=== PATIENT | male | born 1985 | race Two or more races ===

== ENCOUNTER 2019-10-07 23:08 | Observation (INO) ==
[2019-10-07] MEDS ORDERED: SODIUM CHLORIDE 0.9% 1,000 ML IV STA (23:42)
[2019-10-07] MEDS ORDERED: ACETAMINOPHEN 500 MG TABLET PO STA (23:42)
[2019-10-07 23:56] LABS: Basophils % 0.2 % (0.0-0.8); Eosinophils % 0.2 % (0.00-10.9); Hematocrit 47.6 VOL% (42.0-52.0); Hemoglobin 15.7 GM/DL (14.0-18.0); Immature Granulocytes % 0.5 %; Immature Granulocytes Absolute 0.09 #; Lymphocytes # 1.9 10*3/uL (1.4-4.0); Lymphocytes % 10.2 % (21.2-54.2); Mean Corpuscular Volume 87.8 FL (87-102); Mean Platelet Volume 9.8 FL (9.6-12.0); Monocytes % 7.8 % (1.7-12.7); Neutrophils % 81.1 % (38.7-73.9); Platelet Count 229 T/CUMM (130-400); Red Blood Count 5.42 MC/CUMM (3.8-5.5); Red Cell Distribution Width 12.8 % (9.3-17.3); White Blood Count 18.9 T/CUMM (4-12)
[2019-10-08 00:07] LABS: INR 1.1; PT Patient Result 11.9 SECS (9.8-11.9); Partial Thromboplastin Time 36.3 SECS (23.9-33.8)
[2019-10-08 00:22] LABS: Albumin 4.2 G/DL (3.4-5.0); Bilirubin,Total 1.2 MG/DL (0.2-1.0); Calcium 9.5 MG/DL (8.5-10.1); Osmolality,Calculated 267.1 MOS/KG (273-304); Total Protein 8.4 G/DL (6.4-8.3)
[2019-10-08] MEDS ORDERED: PIPERACILLIN/TAZOBACTAM 3,375 MG in SODIUM CHLORIDE 0.9% 100 ML IV STA (01:07)
[2019-10-08] MEDS ORDERED: ACETAMINOPHEN 325 MG TABLET PO PRN (01:39)
[2019-10-08] MEDS ORDERED: ONDANSETRON 4 MG/2 ML VIAL IV PRN ×2 (01:39→11:25)
[2019-10-08] MEDS ORDERED: MORPHINE 4 MG/1 ML VIAL IV PRN (01:39)
[2019-10-08 03:02] LABS: Apearance,Urine CLEAR (Clear); Bilirubin,Urine Negative (Negative); Blood, Urine Negative (Negative); Glucose,Urine (UA) Negative (Negative); Ketones,Urine 80 mg/dL (Negative); Mucus,Urine Occasional /LPF (Occasional); Nitrite,Urine Negative (Negative); Protein,Urine Negative; RBC,Urine 1 /HPF (0-4); Urine Color Yellow (Yellow); Urine Specific Gravity 1.036 (1.001-1.035); Urine Urobilinogen < 2.0 EU/DL (0.2-1.0)
[2019-10-08] MEDS: DEXTROSE 5% NACL 0.45% 1,000 ML IV SCH ×2 (04:34→12:50)
[2019-10-08 05:54] LABS: Basophils % 0.2 % (0.0-0.8); Eosinophils # 0.1 10*3/uL (0.0-0.87); Eosinophils % 0.8 % (0.00-10.9); Hemoglobin 13.9 GM/DL (14.0-18.0); Immature Granulocytes % 0.5 %; Immature Granulocytes Absolute 0.08 #; Lymphocytes # 1.8 10*3/uL (1.4-4.0); Lymphocytes % 10.5 % (21.2-54.2); Mean Corpuscular HGB Conc 33.1 GM/DL (32-36); Mean Corpuscular Volume 86.6 FL (87-102); Mean Platelet Volume 10.3 FL (9.6-12.0); Monocytes % 8.9 % (1.7-12.7); Neutrophils % 79.1 % (38.7-73.9); Platelet Count 204 T/CUMM (130-400); Red Blood Count 4.85 MC/CUMM (3.8-5.5); White Blood Count 16.7 T/CUMM (4-12)
[2019-10-08 06:17] LABS: Albumin 3.2 G/DL (3.4-5.0); Bilirubin,Total 0.8 MG/DL (0.2-1.0); Calcium 8.7 MG/DL (8.5-10.1); Total Protein 7.2 G/DL (6.4-8.3)
[2019-10-08] MEDS ORDERED: DIAZEPAM 5 MG TABLET PO ONE (06:32)
[2019-10-08] MEDS ORDERED: GABAPENTIN 400 MG CAPSULE PO ONE (06:32)
[2019-10-08] MEDS ORDERED: TISSUE ADHESIVE 1 EACH APPLICATOR TOP ONE (07:33)
[2019-10-08] MEDS ORDERED: BUPIVACAINE MPF 0.25% 30 ML VIAL ONE (07:33)
[2019-10-08] MEDS ORDERED: LIDOCAINE 1%/EPI INJ 20 ML VIAL ONE (07:33)
[2019-10-08] MEDS ORDERED: ceFAZolin 1,000 MG VIAL ONE (07:50)
[2019-10-08] MEDS ORDERED: ALBUMIN 5% 12.5 GM/250 ML VIAL IV ONE (09:21)
[2019-10-08] MEDS ORDERED: HYDROmorphone 2 MG/1 ML VIAL IV PRN (10:53)
[2019-10-08] MEDS ORDERED: propofoL 200 MG/20 ML VIAL IV ONE (11:09)
[2019-10-08] MEDS ORDERED: LIDOCAINE 2% 5 ML VIAL ONE (11:09)
[2019-10-08] MEDS ORDERED: fentaNYL 100 MCG/2 ML VIAL ONE (11:09)
[2019-10-08] MEDS ORDERED: MIDAZOLAM 2 MG/2 ML VIAL ONE (11:10)
[2019-10-08] MEDS ORDERED: SEVOFLURANE 1 UNIT/15 MINUTE INH ONE (11:10)
[2019-10-08] MEDS ORDERED: ROCURONIUM 100 MG/10 ML VIAL IV ONE (11:10)
[2019-10-08] MEDS ORDERED: PHENYLEPHRINE 1 MG/10 ML SYRINGE IV ONE (11:10)
[2019-10-08] MEDS ORDERED: LACTATED RINGERS 2,000 ML IV ONE (11:10)
[2019-10-08] MEDS ORDERED: SUCCINYLCHOLINE 200 MG/10 ML VIAL ONE (11:10)
[2019-10-08] MEDS: HYDROmorphone 2 MG/1 ML VIAL IV PRN ×2 (11:33→11:38)
[2019-10-08] MEDS: PIPERACILLIN/TAZOBACTAM 3,375 MG in SODIUM CHLORIDE 0.9% 100 ML IV SCH ×2 (12:50→21:36)
[2019-10-08] MEDS: PANTOPRAZOLE 40 MG VIAL IV SCH (12:50)
[2019-10-09 05:49] LABS: Basophils % 0.3 % (0.0-0.8); Eosinophils # 0.1 10*3/uL (0.0-0.87); Eosinophils % 0.6 % (0.00-10.9); Hematocrit 39.7 VOL% (42.0-52.0); Immature Granulocytes % 0.5 %; Immature Granulocytes Absolute 0.06 #; Mean Corpuscular HGB Conc 32.7 GM/DL (32-36); Mean Corpuscular Volume 87.6 FL (87-102); Mean Platelet Volume 10.7 FL (9.6-12.0); Monocytes % 10.3 % (1.7-12.7); Neutrophils % 70.3 % (38.7-73.9); Platelet Count 222 T/CUMM (130-400); Red Blood Count 4.53 MC/CUMM (3.8-5.5); Red Cell Distribution Width 13.2 % (9.3-17.3); White Blood Count 10.9 T/CUMM (4-12)
[2019-10-09 06:08] LABS: Albumin 2.8 G/DL (3.4-5.0); Bilirubin,Total 1.1 MG/DL (0.2-1.0); Calcium 8.4 MG/DL (8.5-10.1); Osmolality,Calculated 274.5 MOS/KG (273-304); Total Protein 6.7 G/DL (6.4-8.3)
[2019-10-09] MEDS: PIPERACILLIN/TAZOBACTAM 3,375 MG in SODIUM CHLORIDE 0.9% 100 ML IV SCH ×3 (07:11→21:55)
[2019-10-09] MEDS: PANTOPRAZOLE 40 MG VIAL IV SCH (08:57)
[2019-10-09] MEDS: DEXTROSE 5% NACL 0.45% 1,000 ML IV SCH ×2 (11:19)
[2019-10-10] MEDS: DEXTROSE 5% NACL 0.45% 1,000 ML IV SCH ×3 (03:05→12:52)
[2019-10-10] MEDS: PIPERACILLIN/TAZOBACTAM 3,375 MG in SODIUM CHLORIDE 0.9% 100 ML IV SCH (05:20)
[2019-10-10] MEDS: PANTOPRAZOLE 40 MG VIAL IV SCH (09:26)
[2019-10-10 11:39] VITALS: BP 131/80
== END 2019-10-10 13:00 | disposition home or self-care (01) ==
LOC: N.ED 23:08 → N.EDINP 23:08 → N.3E 10-08 02:14
PROVIDERS: ADMIT Student in an Organized Health Care Education/Training Program; ATTEND Student in an Organized Health Care Education/Training Program
PROC: LAPCHOL (2019-10-08 07:24)